=== PATIENT | male | born 1975 | race Two or more races ===

== ENCOUNTER 2023-10-08 20:52 | Emergency (ER) | payer OTHER ==
[~2023-10-08] VITALS: Ht 172.7 cm; Wt 99.8 kg
[2023-10-08] MEDS ORDERED: LOSARTAN POTASS25 MG PO (21:30)
[2023-10-09] MEDS ORDERED: OxyCODONE HCL/APAP UD (PERCOCET) PO STA (03:57)
== END 2023-10-09 05:13 | disposition home or self-care (01) ==
LOC: ER 20:53
DX: S20.211A Contusion of right front wall of thorax, initial encounter (principal); W18.39XA Other fall on same level, initial encounter; Y93.89 Activity, other specified; Y92.89 Other specified places as the place of occurrence of the external cause; G30.8 Other Alzheimer's disease; F02.80 Dementia in other diseases classified elsewhere, unspecified severity, without behavioral disturbance, psychotic disturbance, mood disturbance, and anxiety; Z88.6 Allergy status to analgesic agent